=== PATIENT | male | born 1965 | race Caucasian/White ===

== ENCOUNTER 2020-03-03 22:12 | Emergency (ER) | payer OTHER ==
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
[2020-03-04 00:04] VITALS: BP 133/85
== END 2020-03-04 | disposition home or self-care (01) ==
LOC: ED 22:12
DX: T59.811A Toxic effect of smoke, accidental (unintentional), initial encounter (principal); R05 Cough; X00.1XXA Exposure to smoke in uncontrolled fire in building or structure, initial encounter; Y93.89 Activity, other specified; Y92.009 Unspecified place in unspecified non-institutional (private) residence as the place of occurrence of the external cause; Y99.0 Civilian activity done for income or pay
CPT/HCPCS: 1040M; 99282

== ENCOUNTER 2021-09-04 11:35 | Day surgery (SDC) | payer BC, OTHER ==
[2021-09-04] MEDS ORDERED: PROPOFOL 500 MG/50 ML 500 MG/50 ML VIAL ONE (11:38)
[2021-09-04] MEDS ORDERED: MIDAZOLAM 2 MG/2 ML VIAL ONE (11:40)
[2021-09-04] MEDS ORDERED: LACTATED RINGERS 1,000 ML IV ONE (11:55)
--- NOTE | 2021-09-04 12:13 | ANESTHESIA ---
Pre-Anesthesia VS, & Labs - Diagnosis screening exam - Procedure colonoscopy Vital Signs: Temp Pulse Resp BP Pulse Ox 36.4 C L 60 21 137/91 H 97 09/04/21 11:56 09/04/21 11:56 09/04/21 11:56 09/04/21 11:56 09/04/21 11:56 Height: 5 ft 8 in Weight (kg): 91.9 kg Body Mass Index: 30.8 BMI Classification: Obese - NPO >8 hours Home Medications and Allergies Omeprazole Magnesium [Prilosec] 1 tab PO DAILY 03/03/20 Allergies/Adverse Reactions: Allergies Allergy/AdvReac Type Severity Reaction Status Date / Time No Known Drug Allergies Allergy Verified 09/04/21 12:05 Anes History & Medical History - Anesthetic History Anesthesia Complications: reports: No previous complications - Medical History Cardiovascular: reports: None Pulmonary: reports: None Gastrointestinal: reports: GERD (well controlled on med) Urinary: reports: None Neuro: reports: None Musculoskeletal: reports: None Endocrine/Autoimmune: reports: None Blood Disorders: reports: None Skin: reports: None Smoking Status: Never smoker Psychosocial: reports: No issues indicated History of Cancer?: No - Surgical History Orthopedic: reports: Spine surgery, Other Exam General: Alert, Oriented x3, Cooperative, No acute distress Dental: WNL Mouth Openin Fingerbreadth Neck Mobility: Normal Mallampati classification: I Thyromental Distance: 4-6 cm Mental/Cognitive Status: Alert/Oriented X3, Normal for patient Plan Anesthesia Type: General, Total IV Consent for Procedure(s) Verified and Reviewed: Yes Code Status: Attempt Resuscitation ASA classification: 2-Mild systemic disease Is this case an emergency?: No
--- NOTE | 2021-09-04 12:38 | HISTORY & PHYSICAL EXAMINATION ---
Chief Complaint - Chief Complaint Chief Complaint: family hx colon ca History of Present Illness - History Obtained From Records Reviewed: yes History obtained from: pt Exam Limitations: none - History of Present Illness HPI Comment/Other: fhx colon cancer multiple relatives. no personal problems. here for routine screening History - Past Medical History Cardiovascular: reports: None Respiratory: reports: None Neuro: reports: None Endocrine/Autoimmune: reports: None GI: reports: GERD (well controlled on med) : reports: None HEENT: reports: Other Psych: reports: None Musculoskeletal: reports: None Derm: reports: None MRSA Hx?: No - Past Surgical History Ortho: reports: Spine surgery, Other Meds/Allgy - Home Medications Home Medications: Ambulatory Orders Medication Instructions Recorded Confirmed Omeprazole Magnesium [Prilosec] 1 tab PO DAILY 03/03/20 09/03/21 - Allergies Allergies/Adverse Reactions: Allergies Allergy/AdvReac Type Severity Reaction Status Date / Time No Known Drug Allergies Allergy Verified 09/04/21 12:05 Review of Systems - Other Findings Other Findings: 10 pt ros as above otherwise unremarkable Exam - Vital Signs Reviewed Vital Signs: Yes Vital Signs: Vital Signs x48h Temp Pulse Resp BP Pulse Ox 09/04/21 11:56 36.4 C L 60 21 137/91 H 97 - Physical Exam General Appearance: positive: No acute distress, Alert Eyes Bilateral: positive: PERRL, EOMI ENT: positive: No signs of dehydration Neck: positive: No JVD, Trachea midline Respiratory: positive: No respiratory distress, Breath sounds nml Cardiovascular: positive: Regular rate & rhythm Abdomen: positive: Non-tender, No distention Neurologic/Psychiatric: positive: Oriented x3 Conclusion/Plan - Problem List (1) Colon cancer screening Conclusion/Plan: plan colonoscopy. parq held and consent obtained
[2021-09-04] MEDS ORDERED: LACTATED RINGERS 600 ML IV ONE (13:37)
--- NOTE | 2021-09-04 13:58 | ANESTHESIA POST OP EVALUATION ---
Anesthesia Post Eval - Post Anesthesia Eval Vitals: Last Vital Signs Temp 36.4 C L 09/04/21 13:49 Pulse 80 09/04/21 13:49 Resp 12 09/04/21 13:49 BP 112/74 09/04/21 13:49 Pulse Ox 100 09/04/21 13:49 CV Function Including HR & BP: Stable Pain Control: Satisfactory Nausea & Vomiting: Negative Mental Status: Baseline Respiratory Status: Airway Patent Hydration Status: Satisfactory Anesthesia Complications: None
[2021-09-04 14:22] VITALS: BP 121/86
== END 2021-09-04 11:36 | disposition home or self-care (01) ==
LOC: SDS 11:35
PROVIDERS: ATTEND Surgery
DX: Z12.11 Encounter for screening for malignant neoplasm of colon (principal); E66.9 Obesity, unspecified; Z68.30 Body mass index [BMI] 30.0-30.9, adult
CPT/HCPCS: 45378; J7120

== ENCOUNTER 2022-01-17 15:28 | Emergency (ER) | payer OTHER ==
--- OUTSIDE RECORDS SUMMARY | 2022-01-17 15:33 | EXTERNAL MEDICAL SUMMARY RPT | Continuity of Care Document ---
:1965 Author Organization [facility] Address [address] [place] [address] Phone Allergies and Intolerances date description facility type (no date) No Known Drug Allergies [facility] (unkn own) Encounters No information. Functional Status No information. Immunizations No information. Medications No information. Problems No information. Procedures No information. Results/Labs test date author facility value unit interpret ation Result panel 1 (unknown) (no (unknown) (unknown) (no value) (units (unk nown) date) unknown) (unknown) (no (unknown) (unknown) <Electronically (units (unknown) date) signed by Rocio Barrientos [facility] Crew> (unknown) (no (unknown) (unknown) *If you do not (units (unknown) date) have a primary unknown) care provider please contact [phone] to (unknown) (no (unknown) (unknown) *Please continue (units (unknown) date) to take your unknown) regular medications as directed. (unknown) (no (unknown) (unknown) *Please follow up (units (unknown) date) with your primary unknown) care provider in 2-3 days, call for an (unknown) (no (unknown) (unknown) *Return to (units (unk nown) date) Emergency unknown) Department if you should have any new, worsening, or (unknown) (no (unknown) (unknown) *What to do: (units (u nknown) date) unknown) (unknown) (no (unknown) (unknown) *You have been (units (unknown) date) diagnosed with a unknown) left pectoralis strain/tear. I have added (unknown) (no (unknown) (unknown) [id number] (units (unkno wn) date) unknown) (unknown) (no (unknown) (unknown) 01/14/22 1456 (units ( unknown) date) unknown) (unknown) (no (unknown) (unknown) 09/22/22 (units (unkno wn) date) unknown) (unknown) (no (unknown) (unknown) 11:36 (units (unkno wn) date) unknown) (unknown) (no (unknown) (unknown) 2 g topical QID (units (unknown) date) Qty: 100 0RF unknown) (unknown) (no (unknown) (unknown) Activity (units (unkno wn) date) Restrictions/Addit unknown) ional Instructions: (unknown) (no (unknown) (unknown) Age/Sex: 56 / M (units (unknown) date) unknown) (unknown) (no (unknown) (unknown) All questions and (units (unknown) date) concerns answered unknown) at this time. (unknown) (no (unknown) (unknown) Allergies (units (unkn own) date) unknown) (unknown) (no (unknown) (unknown) Allergy/AdvReac (units (unknown) date) Type Severity unknown) Reaction Status Date / Time (unknown) (no (unknown) (unknown) Blood Pressure (units (unknown) date) 138/100 H 01/14/22 unknown) 11:36 (unknown) (no (unknown) (unknown) Blood Pressure (units (unknown) date) 138/100 H unknown) (unknown) (no (unknown) (unknown) Cardiovascular: (units (unknown) date) regular rate and unknown) rhythm, no peripheral edema, warm extremities (unknown) (no (unknown) (unknown) Chief complaint: (units (unknown) date) Skin/Abscess/Forei unknown) gn Body (unknown) (no (unknown) (unknown) Clinical (units (unkno wn) date) Impression: unknown) (unknown) (no (unknown) (unknown) Course (units (unkno wn) date) unknown) (unknown) (no (unknown) (unknown) : 1965 (units (unknown) date) Acct:[id number] unknown) (unknown) (no (unknown) (unknown) Date of Service: (units (unknown) date) 01/14/22 unknown) (unknown) (no (unknown) (unknown) Departure (units (unkn own) date) unknown) (unknown) (no (unknown) (unknown) Discharge Plan (units (unknown) date) unknown) (unknown) (no (unknown) (unknown) ER Physician: (units ( unknown) date) Crew,Rocio Barrientos unknown) [employer] (unknown) (no (unknown) (unknown) Emergency Report (units (unknown) date) unknown) (unknown) (no (unknown) (unknown) Exam Narrative: (units (unknown) date) unknown) (unknown) (no (unknown) (unknown) Exam (units (unkno wn) date) unknown) (unknown) (no (unknown) (unknown) GI: abdomen soft, (units (unknown) date) nontender to unknown) palpation, nondistended, without masses, rebound (unknown) (no (unknown) (unknown) General (units (unkno wn) date) unknown) (unknown) (no (unknown) (unknown) General: (units (unkno wn) date) cooperative, unknown) comfortable, in no acute distress, well groomed (unknown) (no (unknown) (unknown) HEENT: (units (unkno wn) date) symmetrical facial unknown) expressions, moist mucous membranes (unknown) (no (unknown) (unknown) HPI - (units (unkno wn) date) Skin/Abscess/Forei unknown) gn Bdy (unknown) (no (unknown) (unknown) HPI narrative: (units (unknown) date) unknown) (unknown) (no (unknown) (unknown) HPI (units (unkno wn) date) unknown) (unknown) (no (unknown) (unknown) [facility] [facility] [place] (units (unknown) date) Orthopedics is unknown) here in and a [place]. Please ask for referral (unknown) (no (unknown) (unknown) Healthy adult (units ( unknown) date) unknown) (unknown) (no (unknown) (unknown) History of (units (unk nown) date) Present Illness unknown) (unknown) (no (unknown) (unknown) [facility] (units (unknown) date) [Outside] unknown) (unknown) (no (unknown) (unknown) Initial Vital (units ( unknown) date) Signs unknown) (unknown) (no (unknown) (unknown) Initial Vital (units ( unknown) date) Signs: unknown) (unknown) (no (unknown) (unknown) Instructions: DI (units (unknown) date) for Pectoralis unknown) Major Repair (unknown) (no (unknown) (unknown) [facility] (units (unknown) date) [address] [place] [address] Street unknown) [place] [address] (unknown) (no (unknown) (unknown) Limitations: no (units (unknown) date) limitations unknown) (unknown) (no (unknown) (unknown) MDM - (units (unkno wn) date) Skin/Abscess/Forei unknown) gn Bdy (unknown) (no (unknown) (unknown) MDM Narrative (units ( unknown) date) unknown) (unknown) (no (unknown) (unknown) MSK: moves all (units (unknown) date) extremities, unknown) neurovascularly intact, no weakness, normal tone (unknown) (no (unknown) (unknown) Medical History (units (unknown) date) (Reviewed 01/14/22 unknown) @ 14:52 by Rocio Orellana [facility]) (unknown) (no (unknown) (unknown) Medical and good (units (unknown) date) luck to you. [id number], please use (unknown) (no (unknown) (unknown) Medical and (units (un known) date) referred services unknown) as needed. Patient has been taking naproxen (unknown) (no (unknown) (unknown) Medical decision (units (unknown) date) making narrative: unknown) (unknown) (no (unknown) (unknown) Medication (units (unk nown) date) Instructions unknown) Recorded (unknown) (no (unknown) (unknown) Mode of arrival: (units (unknown) date) Ambulatory unknown) (unknown) (no (unknown) (unknown) Narrative (units (unkn own) date) unknown) (unknown) (no (unknown) (unknown) Narrative: (units (unk nown) date) unknown) (unknown) (no (unknown) (unknown) Neuro: normal (units ( unknown) date) speech and unknown) cognition, A+O x3, ambulatory, clear speech (unknown) (no (unknown) (unknown) New (units (unkno wn) date) unknown) (unknown) (no (unknown) (unknown) No Known Drug (units ( unknown) date) Allergies Allergy unknown) Verified 01/14/22 11:35 (unknown) (no (unknown) (unknown) Oxygen Delivery (units (unknown) date) Method 09/22/22 unknown) 11:36 (unknown) (no (unknown) (unknown) Oxygen Delivery (units (unknown) date) Method Room Air unknown) (unknown) (no (unknown) (unknown) Patient (units (unkno wn) date) Disposition: Home unknown) (unknown) (no (unknown) (unknown) Patient History (units (unknown) date) unknown) (unknown) (no (unknown) (unknown) Patient: (units (unkno wn) date) Carlos Underwood unknown) MR#: [id number] (unknown) (no (unknown) (unknown) Pectoralis muscle (units (unknown) date) strain, Work unknown) related injury (unknown) (no (unknown) (unknown) Please use (units (unk nown) date) naproxen with food unknown) and water as you happened for your pain, warm or (unknown) (no (unknown) (unknown) Prescriptions: (units (unknown) date) unknown) (unknown) (no (unknown) (unknown) Previous Rx's (units ( unknown) date) unknown) (unknown) (no (unknown) (unknown) Provider,Felipa (units (unknown) date) ALBERTO [Primary Care unknown) Provider] (unknown) (no (unknown) (unknown) Psych: mental (units ( unknown) date) status is grossly unknown) normal, congruent mood, normal affect, pleasant (unknown) (no (unknown) (unknown) Pulse Oximetry (units (unknown) date) 100 01/14/22 11:36 unknown) (unknown) (no (unknown) (unknown) Pulse Oximetry (units (unknown) date) 100 unknown) (unknown) (no (unknown) (unknown) Pulse Rate 69 (units ( unknown) date) 01/14/22 11:36 unknown) (unknown) (no (unknown) (unknown) Pulse Rate 69 (units ( unknown) date) unknown) (unknown) (no (unknown) (unknown) Referrals: (units (unk nown) date) unknown) (unknown) (no (unknown) (unknown) Related Data (units (u nknown) date) unknown) (unknown) (no (unknown) (unknown) Respiratory Rate (units (unknown) date) 14 01/14/22 11:36 unknown) (unknown) (no (unknown) (unknown) Respiratory Rate (units (unknown) date) 14 unknown) (unknown) (no (unknown) (unknown) Respiratory: (units (u nknown) date) normal effort, unknown) able to speak in complete sentences, without (unknown) (no (unknown) (unknown) Review of Systems (units (unknown) date) unknown) (unknown) (no (unknown) (unknown) Review of systems (units (unknown) date) is negative for unknown) acute abnormalities unless otherwise noted in (unknown) (no (unknown) (unknown) Reviewed vitals (units (unknown) date) signs and nursing unknown) notes. (unknown) (no (unknown) (unknown) Rx Instructions: (units (unknown) date) unknown) (unknown) (no (unknown) (unknown) Signed By: (units (unk nown) date) unknown) (unknown) (no (unknown) (unknown) [place] [facility] (units (unkn own) date) Orthopedics unknown) [Provider Group] (unknown) (no (unknown) (unknown) Skin: brisk (units (un known) date) capillary refill, unknown) without pallor or erythema (unknown) (no (unknown) (unknown) Smoking Status: (units (unknown) date) Never smoker unknown) (unknown) (no (unknown) (unknown) Social History (units (unknown) date) (Reviewed 01/14/22 unknown) @ 14:52 by Rocio Orellana [facility]) (unknown) (no (unknown) (unknown) Source: patient (units (unknown) date) unknown) (unknown) (no (unknown) (unknown) Stated complaint: (units (unknown) date) Thinks torn pec unknown) muscle- hurts to breathe (unknown) (no (unknown) (unknown) Substance Use (units ( unknown) date) Type: does not use unknown) (unknown) (no (unknown) (unknown) Temperature 97.1 (units (unknown) date) F L 01/14/22 11:36 unknown) (unknown) (no (unknown) (unknown) Temperature 97.1 (units (unknown) date) F L unknown) (unknown) (no (unknown) (unknown) This is a (units (unkn own) date) 56-year-old male unknown) who presents to the emergency department complaining (unknown) (no (unknown) (unknown) This is a (units (unkn own) date) 56-year-old male unknown) who presents to the emergency department with a work (unknown) (no (unknown) (unknown) Time Seen by (units (u nknown) date) Provider: 01/14/22 unknown) 14:15 (unknown) (no (unknown) (unknown) Vital Signs - 8 (units (unknown) date) hr unknown) (unknown) (no (unknown) (unknown) Vital Signs (units (un known) date) unknown) (unknown) (no (unknown) (unknown) Vital signs: (units (u nknown) date) unknown) (unknown) (no (unknown) (unknown) [ ] New (units (unkno wn) date) medication written unknown) as a paper prescription (unknown) (no (unknown) (unknown) [ ] No new (units (unk nown) date) medications given unknown) (unknown) (no (unknown) (unknown) [ x] New (units (unkno wn) date) medication unknown) prescriptions sent to your pharmacy: [[place] (unknown) (no (unknown) (unknown) ] (units (unkno wn) date) unknown) (unknown) (no (unknown) (unknown) alcohol intake (units (unknown) date) frequency: unknown) holidays/special occasions only (unknown) (no (unknown) (unknown) and cooperative (units (unknown) date) unknown) (unknown) (no (unknown) (unknown) anterior of his (units (unknown) date) left chest or any unknown) other associated injury. His L and I claim (unknown) (no (unknown) (unknown) apply to single (units (unknown) date) elbow, wrist or unknown) hand; for hand includes palm/fingers/back of (unknown) (no (unknown) (unknown) appointment. Let (units (unknown) date) them know you were unknown) seen in the Emergency Department and that we (unknown) (no (unknown) (unknown) are stable on (units ( unknown) date) repeat examination unknown) is unremarkable. Patient has been informed of (unknown) (no (unknown) (unknown) asked that you be (units (unknown) date) seen for unknown) follow-up. We will electronically transmit a record (unknown) (no (unknown) (unknown) clear throughout (units (unknown) date) unknown) (unknown) (no (unknown) (unknown) concerning (units (unk nown) date) symptoms, such as unknown) [fever greater than 101F, chills, worsening pain, (unknown) (no (unknown) (unknown) cool packs may be (units (unknown) date) helpful as well, unknown) you can use topical diclofenac which will (unknown) (no (unknown) (unknown) deep to this. He (units (unknown) date) denies any other unknown) injury. States he has full range of motion (unknown) (no (unknown) (unknown) denies any (units (unk nown) date) nausea, vomiting unknown) or any other injury. States that his left pack is (unknown) (no (unknown) (unknown) diclofenac sodium (units (unknown) date) 1 % gel unknown) (unknown) (no (unknown) (unknown) diclofenac sodium (units (unknown) date) 1 % topical gel 2 unknown) g topical QID #100 grams 01/14/22 (unknown) (no (unknown) (unknown) down he was taken (units (unknown) date) down with his left unknown) shoulder hitting the ground injuring his (unknown) (no (unknown) (unknown) establish care (units (unknown) date) with one of the unknown) [facility] primary care providers. (unknown) (no (unknown) (unknown) extension of his (units (unknown) date) left shoulder unknown) vertically, denies any weakness, numbness or (unknown) (no (unknown) (unknown) given information (units (unknown) date) about pectoralis unknown) injury, understands to follow-up with [facility] (unknown) (no (unknown) (unknown) hand (units (unkno wn) date) unknown) (unknown) (no (unknown) (unknown) information about (units (unknown) date) repair of this unknown) because it may be helpful to treat your pain in (unknown) (no (unknown) (unknown) left pectoralis. 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 (unknown) (no (unknown) (unknown) of today's note (units (unknown) date) if your PCP is in unknown) our system (unknown) (no (unknown) (unknown) only has pain (units ( unknown) date) with exacerbation unknown) and stretching of this muscle. There is no (unknown) (no (unknown) (unknown) palpable (units (unkno wn) date) hematoma, rib unknown) fracture, abnormal breath sound, pain deep to the (unknown) (no (unknown) (unknown) pectoralis muscle (units (unknown) date) with tenderness to unknown) palpation, mild ecchymosis, no tenderness (unknown) (no (unknown) (unknown) persistent (units (unk nown) date) vomiting or other unknown) bothersome symptoms]. (unknown) (no (unknown) (unknown) potentially help (units (unknown) date) with pain as well. unknown) I wish you the best, follow-up with [facility] (unknown) (no (unknown) (unknown) providers as (units (u nknown) date) instructed. unknown) Patient understands plan and agrees to discharge home. (unknown) (no (unknown) (unknown) referral to (units (un known) date) physical therapy unknown) and to Orthopedics for further evaluation. He was (unknown) (no (unknown) (unknown) referral to (units (unk nown) date) physical therapy unknown) and to Orthopedics, [facility] physical therapy is in [place] (unknown) (no (unknown) (unknown) related injury of (units (unknown) date) his left unknown) pectoralis major. He denies any pain deep to this, (unknown) (no (unknown) (unknown) results. Patient (units (unknown) date) has been given unknown) strict return to ER precautions for any new or (unknown) (no (unknown) (unknown) states this is (units (unknown) date) good relief. He unknown) was prescribed diclofenac gel to use associated (unknown) (no (unknown) (unknown) tender to (units (unkn own) date) palpation and a unknown) little swollen with some bruising. He denies any pain (unknown) (no (unknown) (unknown) tenderness or (units ( unknown) date) exquisite unknown) tenderness with exam. (unknown) (no (unknown) (unknown) the similar ways (units (unknown) date) as directions. unknown) Please follow-up with [facility] and ask for (unknown) (no (unknown) (unknown) this claim number (units (unknown) date) for all of your unknown) appointments with your referrals. (unknown) (no (unknown) (unknown) tingling, (units (unkn own) date) sensation changes. unknown) Denies any shortness of breath or chest pain, (unknown) (no (unknown) (unknown) to these places (units (unknown) date) for evaluation of unknown) your left pectoralis major injury. (unknown) (no (unknown) (unknown) wheezing, (units (unkn own) date) stridor, or unknown) abnormal breath sounds. No retractions or tachypnea. Left (unknown) (no (unknown) (unknown) with palpation of (units (unknown) date) his ribs with unknown) anterior and lateral pressure breath sounds (unknown) (no (unknown) (unknown) with this. (units (unk nown) date) Patient is unknown) appropriate and amenable to discharge home. Vital signs (unknown) (no (unknown) (unknown) worsening (units (unkn own) date) symptoms. Patient unknown) understands to follow up closely with outpatient Result panel 2 (unknown) (no (unknown) (unknown) (no value) (units (unk nown) date) unknown) (unknown) (no (unknown) (unknown) <José Miguel Jean (units (unknown) date) - Last Filed: unknown) 01/14/22 16:53> (unknown) (no (unknown) (unknown) <Electronically (units (unknown) date) signed by José Miguel unknown) MD Miranda> (unknown) (no (unknown) (unknown) <Electronically (units (unknown) date) signed by Rocio unknown) Floyd [facility] Crew> (unknown) (no (unknown) (unknown) <Rocio Barrientos Esteban, (units (unknown) date) [facility] - Last Filed: unknown) 01/14/22 14:56> (unknown) (no (unknown) (unknown) *If you do not (units (unknown) date) have a primary unknown) care provider please contact [phone] to (unknown) (no (unknown) (unknown) *Please continue (units (unknown) date) to take your unknown) regular medications as directed. (unknown) (no (unknown) (unknown) *Please follow up (units (unknown) date) with your primary unknown) care provider in 2-3 days, call for an (unknown) (no (unknown) (unknown) *Return to (units (unk nown) date) Emergency unknown) Department if you should have any new, worsening, or (unknown) (no (unknown) (unknown) *What to do: (units (u nknown) date) unknown) (unknown) (no (unknown) (unknown) *You have been (units (unknown) date) diagnosed with a unknown) left pectoralis strain/tear. I have added (unknown) (no (unknown) (unknown) [id number] (units (unkno wn) date) unknown) (unknown) (no (unknown) (unknown) 01/14/22 1456 (units ( unknown) date) unknown) (unknown) (no (unknown) (unknown) 01/14/22 1653 (units ( unknown) date) unknown) (unknown) (no (unknown) (unknown) 01/14/22 (units (unkno wn) date) unknown) (unknown) (no (unknown) (unknown) 11:36 01/14/22 (units (unknown) date) unknown) (unknown) (no (unknown) (unknown) 15:23 (units (unkno wn) date) unknown) (unknown) (no (unknown) (unknown) 2 g topical QID (units (unknown) date) Qty: 100 0RF unknown) (unknown) (no (unknown) (unknown) Activity (units (unkno wn) date) Restrictions/Addit unknown) ional Instructions: (unknown) (no (unknown) (unknown) Age/Sex: 56 / M (units (unknown) date) unknown) (unknown) (no (unknown) (unknown) All questions and (units (unknown) date) concerns answered unknown) at this time. (unknown) (no (unknown) (unknown) Allergies (units (unkn own) date) unknown) (unknown) (no (unknown) (unknown) Allergy/AdvReac (units (unknown) date) Type Severity unknown) Reaction Status Date / Time (unknown) (no (unknown) (unknown) Blood Pressure (units (unknown) date) 138/100 H 01/14/22 unknown) 11:36 (unknown) (no (unknown) (unknown) Blood Pressure (units (unknown) date) 138/100 H 131/89 unknown) (unknown) (no (unknown) (unknown) Cardiovascular: (units (unknown) date) regular rate and unknown) rhythm, no peripheral edema, warm extremities (unknown) (no (unknown) (unknown) Chief complaint: (units (unknown) date) Skin/Abscess/Forei unknown) gn Body (unknown) (no (unknown) (unknown) Clinical (units (unkno wn) date) Impression: unknown) (unknown) (no (unknown) (unknown) Cosign (units (unkno wn) date) unknown) (unknown) (no (unknown) (unknown) Course (units (unkno wn) date) unknown) (unknown) (no (unknown) (unknown) : 1965 (units (unknown) date) Acct:[id number] unknown) (unknown) (no (unknown) (unknown) Date of Service: (units (unknown) date) 01/14/22 unknown) (unknown) (no (unknown) (unknown) Departure (units (unkn own) date) unknown) (unknown) (no (unknown) (unknown) Discharge Plan (units (unknown) date) unknown) (unknown) (no (unknown) (unknown) ED Attending (units (u nknown) date) Cosignature unknown) Attestation: (unknown) (no (unknown) (unknown) ER Physician: (units ( unknown) date) Rocio Orellana unknown) [employer] (unknown) (no (unknown) (unknown) Emergency Report (units (unknown) date) unknown) (unknown) (no (unknown) (unknown) Encounter type: (units (unknown) date) initial encounter unknown) Qualified Code(s): S29.011A - Strain of (unknown) (no (unknown) (unknown) Exam Narrative: (units (unknown) date) unknown) (unknown) (no (unknown) (unknown) Exam (units (unkno wn) date) unknown) (unknown) (no (unknown) (unknown) GI: abdomen soft, (units (unknown) date) nontender to unknown) palpation, nondistended, without masses, rebound (unknown) (no (unknown) (unknown) General (units (unkno wn) date) unknown) (unknown) (no (unknown) (unknown) General: (units (unkno wn) date) cooperative, unknown) comfortable, in no acute distress, well groomed (unknown) (no (unknown) (unknown) HEENT: (units (unkno wn) date) symmetrical facial unknown) expressions, moist mucous membranes (unknown) (no (unknown) (unknown) HPI - (units (unkno wn) date) Skin/Abscess/Forei unknown) gn Bdy (unknown) (no (unknown) (unknown) HPI narrative: (units (unknown) date) unknown) (unknown) (no (unknown) (unknown) HPI (units (unkno wn) date) unknown) (unknown) (no (unknown) (unknown) [facility] [place] [facility] [place] (units (unknown) date) Orthopedics is unknown) here in and a [place]. Please ask for referral (unknown) (no (unknown) (unknown) Healthy adult (units ( unknown) date) unknown) (unknown) (no (unknown) (unknown) History of (units (unk nown) date) Present Illness unknown) (unknown) (no (unknown) (unknown) I was immediately (units (unknown) date) available in the unknown) department for consultation. ?This (unknown) (no (unknown) (unknown) [facility] (units (unknown) date) [Outside] unknown) (unknown) (no (unknown) (unknown) Initial Vital (units ( unknown) date) Signs unknown) (unknown) (no (unknown) (unknown) Initial Vital (units ( unknown) date) Signs: unknown) (unknown) (no (unknown) (unknown) Instructions: DI (units (unknown) date) for Pectoralis unknown) Major Repair (unknown) (no (unknown) (unknown) [facility] (units (unknown) date) [address] unknown) [place] [address] (unknown) (no (unknown) (unknown) Limitations: no (units (unknown) date) limitations unknown) (unknown) (no (unknown) (unknown) MDM - (units (unkno wn) date) Skin/Abscess/Forei unknown) gn Bdy (unknown) (no (unknown) (unknown) MDM Narrative (units ( unknown) date) unknown) (unknown) (no (unknown) (unknown) MSK: moves all (units (unknown) date) extremities, unknown) neurovascularly intact, no weakness, normal tone (unknown) (no (unknown) (unknown) Medical History (units (unknown) date) (Reviewed 01/14/22 unknown) @ 14:52 by Rocio Orellana [facility]) (unknown) (no (unknown) (unknown) Medical and good (units (unknown) date) luck to you. [id number], please use (unknown) (no (unknown) (unknown) Medical and (units (un known) date) referred services unknown) as needed. Patient has been taking naproxen (unknown) (no (unknown) (unknown) Medical decision (units (unknown) date) making narrative: unknown) (unknown) (no (unknown) (unknown) Medication (units (unk nown) date) Instructions unknown) Recorded (unknown) (no (unknown) (unknown) Mode of arrival: (units (unknown) date) Ambulatory unknown) (unknown) (no (unknown) (unknown) Narrative (units (unkn own) date) unknown) (unknown) (no (unknown) (unknown) Narrative: (units (unk nown) date) unknown) (unknown) (no (unknown) (unknown) Neuro: normal (units ( unknown) date) speech and unknown) cognition, A+O x3, ambulatory, clear speech (unknown) (no (unknown) (unknown) New (units (unkno wn) date) unknown) (unknown) (no (unknown) (unknown) No Known Drug (units ( unknown) date) Allergies Allergy unknown) Verified 01/14/22 11:35 (unknown) (no (unknown) (unknown) Oxygen Delivery (units (unknown) date) Method 01/14/22 unknown) 11:36 (unknown) (no (unknown) (unknown) Oxygen Delivery (units (unknown) date) Method Room Air unknown) Room Air (unknown) (no (unknown) (unknown) Patient (units (unkno wn) date) Disposition: Home unknown) (unknown) (no (unknown) (unknown) Patient History (units (unknown) date) unknown) (unknown) (no (unknown) (unknown) Patient: (units (unkno wn) date) Carlos Underwood unknown) MR#: [id number] (unknown) (no (unknown) (unknown) Pectoralis muscle (units (unknown) date) strain unknown) (unknown) (no (unknown) (unknown) Please use (units (unk nown) date) naproxen with food unknown) and water as you happened for your pain, warm or (unknown) (no (unknown) (unknown) Prescriptions: (units (unknown) date) unknown) (unknown) (no (unknown) (unknown) Previous Rx's (units ( unknown) date) unknown) (unknown) (no (unknown) (unknown) Provider,Felipa (units (unknown) date) ALBERTO [Primary Care unknown) Provider] (unknown) (no (unknown) (unknown) Psych: mental (units ( unknown) date) status is grossly unknown) normal, congruent mood, normal affect, pleasant (unknown) (no (unknown) (unknown) Pulse Oximetry (units (unknown) date) 100 01/14/22 11:36 unknown) (unknown) (no (unknown) (unknown) Pulse Oximetry (units (unknown) date) 100 100 unknown) (unknown) (no (unknown) (unknown) Pulse Rate 69 (units ( unknown) date) 01/14/22 11:36 unknown) (unknown) (no (unknown) (unknown) Pulse Rate 69 63 (units (unknown) date) unknown) (unknown) (no (unknown) (unknown) Qualifiers: (units (un known) date) unknown) (unknown) (no (unknown) (unknown) Referrals: (units (unk nown) date) unknown) (unknown) (no (unknown) (unknown) Related Data (units (u nknown) date) unknown) (unknown) (no (unknown) (unknown) Respiratory Rate (units (unknown) date) 14 01/14/22 11:36 unknown) (unknown) (no (unknown) (unknown) Respiratory Rate (units (unknown) date) 14 20 unknown) (unknown) (no (unknown) (unknown) Respiratory: (units (u nknown) date) normal effort, unknown) able to speak in complete sentences, without (unknown) (no (unknown) (unknown) Review of Systems (units (unknown) date) unknown) (unknown) (no (unknown) (unknown) Review of systems (units (unknown) date) is negative for unknown) acute abnormalities unless otherwise noted in (unknown) (no (unknown) (unknown) Reviewed vitals (units (unknown) date) signs and nursing unknown) notes. (unknown) (no (unknown) (unknown) Rx Instructions: (units (unknown) date) unknown) (unknown) (no (unknown) (unknown) Signed By: (units (unk nown) date) unknown) (unknown) (no (unknown) (unknown) [facility] (units (unkn own) date) [facility]oped[facility] unknown) [Provider Group] (unknown) (no (unknown) (unknown) Skin: brisk (units (un known) date) capillary refill, unknown) without pallor or erythema (unknown) (no (unknown) (unknown) Smoking Status: (units (unknown) date) Never smoker unknown) (unknown) (no (unknown) (unknown) Social History (units (unknown) date) (Reviewed 01/14/22 unknown) @ 14:52 by Rocio Orellana [facility]) (unknown) (no (unknown) (unknown) Source: patient (units (unknown) date) unknown) (unknown) (no (unknown) (unknown) Stated complaint: (units (unknown) date) Thinks torn pec unknown) muscle- hurts to breathe (unknown) (no (unknown) (unknown) Substance Use (units ( unknown) date) Type: does not use unknown) (unknown) (no (unknown) (unknown) Supervised by (units ( unknown) date) José Miguel Jean MD unknown) (unknown) (no (unknown) (unknown) Temperature 97.1 (units (unknown) date) F L 01/14/22 11:36 unknown) (unknown) (no (unknown) (unknown) Temperature 97.1 (units (unknown) date) F L unknown) (unknown) (no (unknown) (unknown) This is a (units (unkn own) date) 56-year-old male unknown) who presents to the emergency department complaining (unknown) (no (unknown) (unknown) This is a (units (unkn own) date) 56-year-old male unknown) who presents to the emergency department with a work (unknown) (no (unknown) (unknown) Time Seen by (units (u nknown) date) Provider: 01/14/22 unknown) 14:15 (unknown) (no (unknown) (unknown) Visit Report (units (u nknown) date) Forms: Patient unknown) Portal/API (unknown) (no (unknown) (unknown) Vital Signs - 8 (units (unknown) date) hr unknown) (unknown) (no (unknown) (unknown) Vital Signs (units (un known) date) unknown) (unknown) (no (unknown) (unknown) Vital signs: (units (u nknown) date) unknown) (unknown) (no (unknown) (unknown) Work related (units (u nknown) date) injury unknown) (unknown) (no (unknown) (unknown) [ ] New (units (unkno wn) date) medication written unknown) as a paper prescription (unknown) (no (unknown) (unknown) [ ] No new (units (unk nown) date) medications given unknown) (unknown) (no (unknown) (unknown) [ x] New (units (unkno wn) date) medication unknown) prescriptions sent to your pharmacy: [[facility] (unknown) (no (unknown) (unknown) ] (units (unkno wn) date) unknown) (unknown) (no (unknown) (unknown) alcohol intake (units (unknown) date) frequency: unknown) holidays/special occasions only (unknown) (no (unknown) (unknown) and cooperative (units (unknown) date) unknown) (unknown) (no (unknown) (unknown) anterior of his (units (unknown) date) left chest or any unknown) other associated injury. His L and I claim (unknown) (no (unknown) (unknown) apply to single (units (unknown) date) elbow, wrist or unknown) hand; for hand includes palm/fingers/back of (unknown) (no (unknown) (unknown) appointment. Let (units (unknown) date) them know you were unknown) seen in the Emergency Department and that we (unknown) (no (unknown) (unknown) are stable on (units ( unknown) date) repeat examination unknown) is unremarkable. Patient has been informed of (unknown) (no (unknown) (unknown) asked that you be (units (unknown) date) seen for unknown) follow-up. We will electronically transmit a record (unknown) (no (unknown) (unknown) clear throughout (units (unknown) date) unknown) (unknown) (no (unknown) (unknown) concerning (units (unk nown) date) symptoms, such as unknown) [fever greater than 101F, chills, worsening pain, (unknown) (no (unknown) (unknown) cool packs may be (units (unknown) date) helpful as well, unknown) you can use topical diclofenac which will (unknown) (no (unknown) (unknown) deep to this. He (units (unknown) date) denies any other unknown) injury. States he has full range of motion (unknown) (no (unknown) (unknown) denies any (units (unk nown) date) nausea, vomiting unknown) or any other injury. States that his left pack is (unknown) (no (unknown) (unknown) diclofenac sodium (units (unknown) date) 1 % gel unknown) (unknown) (no (unknown) (unknown) diclofenac sodium (units (unknown) date) 1 % topical gel 2 unknown) g topical QID #100 grams 01/14/22 (unknown) (no (unknown) (unknown) documentation has (units (unknown) date) been reviewed and unknown) I agree with assessment and plan. (unknown) (no (unknown) (unknown) down he was taken (units (unknown) date) down with his left unknown) shoulder hitting the ground injuring his (unknown) (no (unknown) (unknown) establish care (units (unknown) date) with one of the unknown) [facility] primary care providers. (unknown) (no (unknown) (unknown) extension of his (units (unknown) date) left shoulder unknown) vertically, denies any weakness, numbness or (unknown) (no (unknown) (unknown) given information (units (unknown) date) about pectoralis unknown) injury, understands to follow-up with [facility] (unknown) (no (unknown) (unknown) hand (units (unkno wn) date) unknown) (unknown) (no (unknown) (unknown) information about (units (unknown) date) repair of this unknown) because it may be helpful to treat your pain in (unknown) (no (unknown) (unknown) left pectoralis. 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 (unknown) (no (unknown) (unknown) of today's note (units (unknown) date) if your PCP is in unknown) our system (unknown) (no (unknown) (unknown) only has pain (units ( unknown) date) with exacerbation unknown) and stretching of this muscle. There is no (unknown) (no (unknown) (unknown) palpable (units (unkno wn) date) hematoma, rib unknown) fracture, abnormal breath sound, pain deep to the (unknown) (no (unknown) (unknown) pectoralis muscle (units (unknown) date) with tenderness to unknown) palpation, mild ecchymosis, no tenderness (unknown) (no (unknown) (unknown) persistent (units (unk nown) date) vomiting or other unknown) bothersome symptoms]. (unknown) (no (unknown) (unknown) potentially help (units (unknown) date) with pain as well. unknown) I wish you the best, follow-up with [facility] (unknown) (no (unknown) (unknown) providers as (units (u nknown) date) instructed. unknown) Patient understands plan and agrees to discharge home. (unknown) (no (unknown) (unknown) referral to (units (un known) date) physical therapy unknown) and to Orthopedics for further evaluation. He was (unknown) (no (unknown) (unknown) referral to (units (unk nown) date) physical therapy unknown) and to Orthopedics, [facility] physical therapy is in [place] (unknown) (no (unknown) (unknown) related injury of (units (unknown) date) his left unknown) pectoralis major. He denies any pain deep to this, (unknown) (no (unknown) (unknown) results. Patient (units (unknown) date) has been given unknown) strict return to ER precautions for any new or (unknown) (no (unknown) (unknown) states this is (units (unknown) date) good relief. He unknown) was prescribed diclofenac gel to use associated (unknown) (no (unknown) (unknown) tender to (units (unkn own) date) palpation and a unknown) little swollen with some bruising. He denies any pain (unknown) (no (unknown) (unknown) tenderness or (units ( unknown) date) exquisite unknown) tenderness with exam. (unknown) (no (unknown) (unknown) the similar ways (units (unknown) date) as directions. unknown) Please follow-up with [facility] and ask for (unknown) (no (unknown) (unknown) this claim number (units (unknown) date) for all of your unknown) appointments with your referrals. (unknown) (no (unknown) (unknown) tingling, (units (unkn own) date) sensation changes. unknown) Denies any shortness of breath or chest pain, (unknown) (no (unknown) (unknown) to these places (units (unknown) date) for evaluation of unknown) your left pectoralis major injury. (unknown) (no (unknown) (unknown) wheezing, (units (unkn own) date) stridor, or unknown) abnormal breath sounds. No retractions or tachypnea. Left (unknown) (no (unknown) (unknown) with palpation of (units (unknown) date) his ribs with unknown) anterior and lateral pressure breath sounds (unknown) (no (unknown) (unknown) with this. (units (unk nown) date) Patient is unknown) appropriate and amenable to discharge home. Vital signs (unknown) (no (unknown) (unknown) worsening (units (unkn own) date) symptoms. Patient unknown) understands to follow up closely with outpatient Social History No information. Vital Signs No information.
[2022-01-17 15:36] VITALS: BP 134/91
[2022-01-17] MEDS ORDERED: KETOROLAC 60 MG/2 ML VIAL IM STA (15:43)
--- NOTE | 2022-01-17 15:45 | ED Physician Documentation ---
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 It is not associated with weakness, numbness, saddle anesthesia, tingling, fevers. Review of Systems Constitutional: denies: Fever, Chills Ears: reports: Reviewed and negative Cardiac: reports: Reviewed and negative PD PAST MEDICAL HISTORY - Past Medical History Cardiovascular: None Respiratory: None Neuro: None Endocrine/Autoimmune: None GI: GERD (well controlled on med) : None HEENT: Other Psych: None Musculoskeletal: None Derm: None - Past Surgical History Past Surgical History: No Ortho: Spine surgery, Other - Present Medications Home Medications: Ambulatory Orders Medication Instructions Recorded Confirmed Cyclobenzaprine [Flexeril] 10 mg PO TID PRN #20 tablet 01/17/22 HYDROcod/ACETAM 5/325 [[place] 5/325] 1 - 2 tab PO Q6H PRN #15 tablet 01/17/22 - Allergies Allergies/Adverse Reactions: Allergies Allergy/AdvReac Type Severity Reaction Status Date / Time No Known Drug Allergies Allergy Verified 01/17/22 15:31 - Social History Does the pt smoke?: No Smoking Status: Never smoker PD ED PE NORMAL - Vitals Vital signs reviewed: Yes - General General: Alert and oriented X 3, No acute distress - Back Back: Other (He is comfortable at rest but winces in pain, he has some muscular tenderness around L5.) - Extremities Extremities: Other (The patient has equal and normal Achilles and patellar reflexes bilaterally. Normal sensation in all areas of the legs. Patient denies saddle anesthesia. Normal strength in flexion-extension at the ankles, knees, and flexion of the hips.) - Neuro Neuro: Alert and oriented X 3, Normal speech Results - Vitals Vitals: Vital Signs - 24 hr 01/17/22 15:31 Temperature 36.4 C L Heart Rate 68 Respiratory 16 Rate Blood Pressure 134/91 H O2 Saturation 99 Oxygen O2 Source Room air PD MEDICAL DECISION MAKING - ED course ED course: This patient has seemingly uncomplicated musculoskeletal back pain. The patient has no "red flags." Specifically denies IV drug use, fevers, incontinence, saddle anesthesia. Spinal epidural abscess was considered, given that the patient has no fever, is not diabetic, has no spinal tenderness, does not use IV drugs, and has no bilateral neurologic symptoms, the diagnosis of spinal epidural abscess is considered exceedingly unlikely. Departure - Departure Disposition: Home, Self Care Clinical Impression: Back spasm Condition: Good Record reviewed to determine appropriate education?: Yes Instructions: ED Spasm Back No Trauma Prescriptions: Cyclobenzaprine [Flexeril] 10 mg PO TID PRN #20 tablet PRN Reason: Spasms HYDROcod/ACETAM 5/325 [[place] 5/325] 1 - 2 tab PO Q6H PRN #15 tablet PRN Reason: Pain Comments: I sent your prescriptions electronically to [facility] in [place]. Heat and gentle stretching, you can also take ibuprofen as needed for the anti- inflammatory effect. If pain lasts more than a few days talk with your doctor about physical therapy. Return for new or worsening symptoms. I am prescribing a short course of narcotic pain medication for you. These are potentially dangerous and addictive medications that should be used carefully. These medications may constipate you. Take an zaam-ggo-spqevrn stool softener (docusate) twice daily with plenty of water while taking these medications. If you go 24 hours without a bowel movement, take tcyr-[id number] miralax, per package instructions. Do not drink or drive while taking these medications. If you received narcotic or sedating medications while in the emergency department, do not drive for 24 hours. Store this medication in a safe, secure place and out of reach of children. It is a violation of federal law to give or sell this medication to another person or to use in a manner other than prescribed. The ED will not refill narcotic prescriptions, including prescriptions lost or stolen. To dispose of unwanted medications: 1. [facility] [address] in [place] has a medication drop box. They accept prescription medications (in pill form) Tuesday through Tuesday 9:00 a.m. to 5:00 p.m. 2. [facility] accepts prescription medications (in pill form only) for disposal year round. Call for more information. 3. Contact the [facility] for the next [facility] sponsored prescription kasie g collection event. , [phone], or [phone]; Note that many narcotic pain relievers also contain Tylenol/acetaminophen. Please ensure that your total dose of acetaminophen from all sources does not exceed 3 g (3000 mg) per day.
== END 2022-01-17 15:58 | disposition home or self-care (01) ==
LOC: ED 15:28
DX: M62.830 Muscle spasm of back (principal)
CPT/HCPCS: 96372; 99282; 99283

== ENCOUNTER 2022-06-07 19:50 | Emergency (ER) | payer OTHER ==
[2022-06-07] MEDS ORDERED: oxyCODONE 5 MG TABLET PO STA (23:11)
--- NOTE | 2022-06-07 23:13 | ED Physician Documentation ---
History of Present Illness - Stated complaint Stated Complaint: BACK PX - Chief complaint Chief Complaint: Back Pain - Additonal information Additional information: Patient is 56-year-old male with mid line and low back pain. Reports has had persistent pain for the last several months. Was seen at this facility 01/14 for similar symptoms. 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 States has felt this before but that is new usually not this severe. Denies new trauma to the back. Denies numbness or tingling around the anus or genitalia, fever, lower extremity weakness. Reports does follow with primary care and has had x-rays done and is awaiting referral for more MRI. Past medical of upper lumbar back fracture that occurred after fall greater than 30 years ago requiring Johnathan placement. Review of Systems Constitutional: denies: Fever Eyes: denies: Loss of vision Ears: denies: Loss of hearing Nose: denies: Rhinorrhea / runny nose Throat: denies: Dental pain / toothache Cardiac: denies: Chest pain / pressure Respiratory: denies: Dyspnea, Cough GI: denies: Abdominal Pain : denies: Dysuria, Hesitancy, Unable to Void, Incontinent, Hematuria Skin: denies: Rash Musculoskeletal: reports: Back pain. denies: Neck pain, Extremity pain, Joint pain Neurologic: denies: Generalized weakness PD PAST MEDICAL HISTORY - Past Medical History Cardiovascular: None Respiratory: None Neuro: None Endocrine/Autoimmune: None GI: GERD (well controlled on med) : None HEENT: Other Psych: None Musculoskeletal: None Derm: None - Past Surgical History Past Surgical History: No Ortho: Spine surgery, Other - Present Medications Home Medications: Ambulatory Orders Medication Instructions Recorded Confirmed Acetaminophen [Tylenol] 650 mg PO Q6H PRN #30 tablet 06/07/22 Baclofen [Lioresal] 10 mg PRN 06/07/22 Ibuprofen [Motrin] 600 mg PO Q6H PRN #30 tab 06/07/22 Meloxicam [Mobic] 7.5 mg PO PRN 06/07/22 oxyCODONE [Roxicodone] 5 mg PO Q6HR PRN #15 tablet 06/07/22 - Allergies Allergies/Adverse Reactions: Allergies Allergy/AdvReac Type Severity Reaction Status Date / Time No Known Drug Allergies Allergy Verified 06/07/22 20:11 - Social History Does the pt smoke?: No Smoking Status: Never smoker PD ED PE NORMAL - Vitals Vital signs reviewed: Yes - General General: Alert and oriented X 3, No acute distress - HEENT HEENT: Atraumatic - Respiratory Respiratory: No respiratory distress - Back Back: No CVA TTP, No spinal TTP, Other (Area of induration in the thoracic and lumbar region of the spine consistent with his known history of johnathan placement in his mid 20s.) - Derm Derm: Normal color - Extremities Extremities: No deformity - Neuro Neuro: Alert and oriented X 3, engraver machine 2-12 intact, No motor deficit, Other (Patient ambulates with ease.) Results - Vitals Vitals: Vital Signs - 24 hr 06/07/22 20:08 Temperature 36.6 C Heart Rate 82 Respiratory 16 Rate Blood Pressure 143/102 H O2 Saturation 97 Oxygen O2 Source Room air PD Medical Decision Making - ED course Complexity details: d/w patient ED course: Patient 56-year-old male presenting with acute on chronic back pain. Mid low back pain that is by ongoing for several months which was exacerbated recently while at work. No history of trauma, fever, saddle paresthesias, changes in b owel bladder habit or other red flags. Is currently following with primary care. Does have prescriptions for meloxicam and Robaxin. No spinal tenderness to palpation and patient is ambulating with ease in the emergency department. We will give medications for pain control and discharged with alternating acetaminophen, nonsteroidal anti-inflammatory medications and a few Roxicodone for breakthrough pain. Discussed the nature of low back pain and strategies for its management which include adequate hydration, gentle activity as tolerated and the importance of careful follow-up with primary care. Also discussed return precautions prior to discharge including return precautions for any indications of spinal cord compression or infection. Departure - Departure Instructions: ED Sciatica Prescriptions: oxyCODONE [Roxicodone] 5 mg PO Q6HR PRN #15 tablet PRN Reason: Pain Ibuprofen [Motrin] 600 mg PO Q6H PRN #30 tab PRN Reason: Pain Acetaminophen [Tylenol] 650 mg PO Q6H PRN #30 tablet PRN Reason: PRN PAIN &/OR FEVER Comments: Thank you for allowing us to care for you today would be [facility]. I have sent some prescriptions to [facility] in [place]. Treated. I recommend activity as tolerated is complete and activity can make back pain such as that you are experiencing worse. I recommend regular alternating acetaminophen and either ibuprofen or your previously prescribed meloxicam. I have also sent a prescription for Roxicodone, also known as oxycodone. Please be aware that this is a strong narcotic pain medication. It can cause sedation and is habit-forming. It should not be used if you are operating a motor vehicle, using of the machinery or you are the sole label stamper of young children. Please make a follow-up appoint with your primary care doctor soon as possible. If anytime you develop new or worsening symptoms such as worsening pain, fever, numbness or tingling around your anus or genitalia or loss of bowel or bladder control please return to the emergency department immediately for reevaluation.
[2022-06-07 23:31] VITALS: BP 130/96
== END 2022-06-07 23:30 | disposition home or self-care (01) ==
LOC: ED 19:50
DX: M54.50 Low back pain, unspecified (principal); G89.29 Other chronic pain
CPT/HCPCS: 99283; 99284; A9270

== ENCOUNTER 2022-06-19 10:00 | Outpatient (CLI) | payer OTHER ==
--- NOTE | 2022-06-21 08:27 | MRI Report ---
PROCEDURE: LUMBAR SPINE WO INDICATIONS: MUSCLE SPASM BACK, LUMBAR RADICULOPATHY TECHNIQUE: Noncontrast sagittal T1 spin echo and T2 fast echo, sagittal STIR, axial T1 and T2 fast spin echo thr ough the lumbar spine. In cases with scoliosis, additional coronal T2 fast spin echo may be performe d. COMPARISON: None. FINDINGS: Image quality: Excellent. Alignment and Curvature: Bilateral L5 pars defects with anterolisthesis of L5 on S1 measuring 12.5 mm . Metallic artifact centered at L2-L3 posteriorly Bone Marrow: Marrow is of normal overall signal. No acute vertebral body compression fractures. Spinal Cord: Conus medullaris terminates at the T12 level. Visualized cord demonstrates normal sign al and size. Paraspinous Soft Tissues: No paravertebral masses. T12-L1: Normal in appearance. L1-L2: Posterior metallic artifact. However, no canal stenosis expected. No foraminal stenosis. L2-L3: Significant posterior metallic artifact. Disc bulge. Possible canal stenosis. No suspected foraminal narrowing. L3-L4: Minimal disc bulge. Mild facet hypertrophy. No canal stenosis or foraminal stenosis. L4-L5: Disc bulge. Facet hypertrophy. No canal stenosis or foraminal stenosis. L5-S1: Bilateral L5 pars defects. 12.5 mm anterolisthesis of L5 on S1. Bilateral facet hypertrophy . Mild canal stenosis at the disc level. There is a anterior medial superior facet joint cyst off the right facet which mildly impinges on the right L5 nerve root in the right lateral recess. There is m oderate bilateral foraminal narrowing with flattening deformity on the bilateral L5 nerve roots in th e foramina. IMPRESSION: 1. There is significant posterior metallic artifact at the level of L2-L3. There is possible canal st enosis at this level. Consider CT for further evaluation. 2. Multilevel facet arthropathy. 3. At L5-S1, there are bilateral L5 pars defects and 12.5 mm of anterolisthesis of L5 on S1. There is a right facet joint cyst which mildly impinges on the right L5 nerve root. There is mild canal steno sis. There is moderate bilateral foraminal narrowing. Reviewed by: Chau Villagran MD on 06/21/2022 8:26 AM PST Approved by: Chau Villagran MD on 06/21/2022 8:26 AM PST Station ID: [id number]
== END 2022-06-19 10:01 | disposition home or self-care (01) ==
LOC: DI 10:00
PROVIDERS: ATTEND Family Medicine
DX: M47.816 Spondylosis without myelopathy or radiculopathy, lumbar region (principal); M43.17 Spondylolisthesis, lumbosacral region; M48.07 Spinal stenosis, lumbosacral region